=== PATIENT | male | born 2000 | race Caucasian/White ===

== ENCOUNTER 2018-08-21 11:18 | Emergency (ER) | payer BC ==
--- NOTE | 2018-08-21 11:24 | ER Report ---
History and Physical Time Seen By MD: 11:24 HPI/ROS Had a push pin in his mouth last night. Coughed and thought he may have swallowed it. No pain or any other symptoms. No SOB. Remainder of the 14 system rev: Yes Allergies: Coded Allergies: Penicillins (Verified Allergy, Intermediate, 08/21/18) Sulfa (Sulfonamide Antibiotics) (Verified Allergy, Intermediate, 08/21/18) Home Meds No Active Prescriptions or Reported Meds Reviewed Nurses Notes: Yes Old Medical Records Reviewed: Yes Constitutional Vital Sign - Last 24 Hours 08/21/18 11:22 Temp 98.2 Pulse 88 Resp 16 B/P (MAP) 132/84 Pulse Ox 92 O2 Delivery Room Air Physical Exam General Appearance: The patient is alert, has no immediate need for airway protection and no current signs of toxicity. Eyes: Pupils equal and round no injection. Respiratory: Chest is non tender, lungs are clear to auscultation. Cardiac: regular rate and rhythm Gastrointestinal: Abdomen is soft and non tender, no masses, bowel sounds normal. Musculoskeletal: Neck: Neck is supple and non tender. Extremities have full range of motion and are non tender. Skin: No rashes or lesions. DIFFERENTIAL DIAGNOSIS: After history and physical exam differential diagnosis was considered for ingested fb, retained fb Medical Decision Making ED Course/Re-evaluation ED Course No pain today in the emergency department or since the incident occurred. Not sure whether he actually swallowed a pushpin up or coughed it out. He is able to take an exam at the [facility] already this morning and then came to the emergency department. A soft tissue neck x-ray and a chest x-ray does show no e vidence of ingested foreign body. No shortness of breath. I gave him strict return precautions. Decision to Disposition Date: Aug 21, 2018 Decision to Disposition Time: 12:35 Depart Departure Latest Vital Signs Vital Signs Date Time Temp Pulse Resp B/P (MAP) Pulse Ox O2 Delivery O2 Flow Rate FiO2 08/21/18 11:22 98.2 88 16 132/84 92 Room Air Impression: Primary Impression: Foreign body, swallowed Condition: Improved Disposition: HOME OR SELF-CARE New Scripts No Active Prescriptions or Reported Meds Patient Instructions: Foreign Body Ingestion (ED) Problem Qualifiers Primary Impression: Foreign body, swallowed Encounter type: initial encounter Qualified Codes: T18.9XXA - Foreign body of alimentary tract, part unspecified, initial encounter YOSELYN DENTON MD Aug 21, 2018 11:24
--- NOTE | 2018-08-21 12:14 | RADIOLOGY IMAGING REPORT ---
FACILITY: [facility] [place] PATIENT NAME: Billy Gilman : 2000 MR: [id number] V: [id number] EXAM DATE: ORDERING PHYSICIAN: YOSELYN DENTON TECHNOLOGIST: Location: [facility] Patient: Billy Gilman : 2000 Visit/Account:[id number] Date of Sevice: 08/21/2018 CHEST PA AND LAT, NECK SOFT TISSUE History: fb in throat? Additional history: Patient swallowed a pin. FINDINGS: Two views of the neck and chest were performed. Soft tissues of the neck and the chest are normal wi thout evidence of a radiopaque foreign body. Lungs well-aerated. Mediastinum and cardiac silhouette are normal. IMPRESSION: Normal neck and chest without evidence of a radiopaque foreign body. Report Dictated By: Alvarez Browne MD at 08/21/2018 12:06 PM Report E-Signed By: Alvarez Browne MD at 08/21/2018 12:09 PM WSN:[email or web address]
--- NOTE | 2018-08-21 12:15 | RADIOLOGY IMAGING REPORT ---
FACILITY: [facility] - [place] PATIENT NAME: Billy Gilman : 2000 MR: [id number] V: [id number] EXAM DATE: ORDERING PHYSICIAN: YOSELYN DENTON TECHNOLOGIST: [place] [facility] [place] Gil[place] : 2000 Visit/Account:[id number] Date of Sevice: 08/21/2018 CHEST PA AND LAT, NECK SOFT TISSUE History: fb in throat? Additional history: Patient swallowed a pin. FINDINGS: Two views of the neck and chest were performed. Soft tissues of the neck and the chest are normal wi thout evidence of a radiopaque foreign body. Lungs well-aerated. Mediastinum and cardiac silhouette are normal. IMPRESSION: Normal neck and chest without evidence of a radiopaque foreign body. Report Dictated By: Alvarez Browne MD at 08/21/2018 12:06 PM Report E-Signed By: Alvarez Browne MD at 08/21/2018 12:09 PM WSN:[email or web address]
[2018-08-21 12:41] VITALS: BP 116/65
== END 2018-08-21 12:44 | disposition home or self-care (01) ==
LOC: ER 12:28
DX: T18.9XXA Foreign body of alimentary tract, part unspecified, initial encounter (principal)
CPT/HCPCS: 70360; 71046; 99284